=== PATIENT | female | born 1965 ===

== ENCOUNTER 2018-02-17 06:00 | Day surgery (SDC) | payer MEDICAID ==
[2018-02-17] MEDS ORDERED: Ofloxacin 0.3% Ophth Soln ONE (06:56)
[2018-02-17] MEDS ORDERED: Propofol 10 mg/ml Inj (20 ML) ONE (07:45)
[2018-02-17] MEDS ORDERED: Midazolam 2 MG/2 ML VIAL ONE (07:48)
[2018-02-17 09:32] VITALS: BP 101/66; PULSE 59; RESP 18; TEMP 97.8; O2SAT 98
--- NOTE | 2018-02-17 19:25 | OP ---
PROCEDURE DATE: 02/17/2018 PREOPERATIVE DIAGNOSIS: Bilateral chronic otitis media. POSTOPERATIVE DIAGNOSIS: Bilateral chronic otitis media. PROCEDURE: Bilateral myringotomy with tubes. SURGEON: Anil Munroe MD SIGNIFICANT FINDINGS: Fluid noted behind both TMs. DESCRIPTION OF PROCEDURE: The patient was brought into room, placed in supine position. Anesthesia was initiated through facemask. The patient was draped in usual manner. The head was turned. The right ear was brought in to view using operative microscope and ear speculum. Radial incision was made in the anterior-inferior quadrant of the eardrum. Fluid was noted behind the TM and suctioned out. Tube was placed. Floxin was placed. The head was turned. The other ear was brought into view using operative microscope and ear speculum. Radial incision was made in the anterior-inferior quadrant of the eardrum. Fluid was noted behind the TM and suctioned out. Tube was placed. Floxin was placed. The patient was then taken off anesthesia and taken to recovery room in stable manner. Anil Munroe MD
== END 2018-02-17 09:55 | disposition hospice, home (50) ==
LOC: C.SDS 06:00
PROVIDERS: ATTEND Otolaryngology
DX: H66.13 Chronic tubotympanic suppurative otitis media, bilateral (principal); E11.9 Type 2 diabetes mellitus without complications